=== PATIENT | female | born 1965 | race Caucasian/White ===

== ENCOUNTER → 2024-03-03 16:09 | Outpatient (REF) | payer BC, SELFPAY | LOC: HWWDC 16:09 | PROVIDERS: ATTENDING PHYSICIAN Surgery; FAMILY PHYSICIAN Nurse Practitioner Family | DX: Z12.31 Encounter for screening mammogram for malignant neoplasm of breast (principal) | CPT/HCPCS: 77063; 77067 ==

== ENCOUNTER → 2024-06-30 06:27 | Day surgery (SDC) | payer BC, SELFPAY | LOC: GI 06:27 | PROVIDERS: ATTENDING PHYSICIAN Internal Medicine Gastroenterology | DX: Z12.11 Encounter for screening for malignant neoplasm of colon (principal); K64.8 Other hemorrhoids; Z86.010 Personal history of colon polyps | CPT/HCPCS: G0105 ==

== ENCOUNTER → 2025-07-02 13:32 | Outpatient (REF) | payer OTHER, SELFPAY | LOC: WDC 13:32 | PROVIDERS: ATTENDING PHYSICIAN Nurse Practitioner Family | DX: Z12.31 Encounter for screening mammogram for malignant neoplasm of breast (principal) | CPT/HCPCS: 77063; 77067 ==